=== PATIENT | female | born 1955 | race Caucasian/White ===

== ENCOUNTER 2017-03-21 10:06 | Outpatient (CLI) | payer OTHER ==
--- NOTE | 2017-03-21 11:35 | BD ---
DEXA BONE DENSITY EXAM: History: 61-year-old post-menopausal female for screening. Lumbar Spine: BMD (g/cm2) L1 1.086 T-Score: 0.2 L2 1.018 T-Score: -0.1 L3 1.064 T-Score: -0.2 L4 1.013 T-Score: -0.4 L1-L4 1.044 T-Score: 0.0 Femoral Neck: 0.702 T-Score: -1.3 Total Femur: 0.837 T-Score: -0.9 Impression: Osteopenia. This patient's 10-year fracture risk for major osteophytic fracture is 8.1% at the hip, approximately 0.6%. POS: MANDY
== END 2017-03-21 10:07 | disposition home or self-care (01) ==
LOC: MAMMO 10:06
PROVIDERS: ATTEND Obstetrics & Gynecology Gynecology
DX: Z13.820 Encounter for screening for osteoporosis (principal); M85.80 Other specified disorders of bone density and structure, unspecified site
CPT/HCPCS: 77080

== ENCOUNTER 2021-12-19 10:24 | Outpatient (CLI) | payer OTHER | END 2021-12-19 10:25 | disposition home or self-care (01) | LOC: BICMAMMO 10:24 | PROVIDERS: ATTEND Nurse Practitioner Family | DX: Z13.820 Encounter for screening for osteoporosis (principal); M85.852 Other specified disorders of bone density and structure, left thigh; M85.851 Other specified disorders of bone density and structure, right thigh | CPT/HCPCS: 77063; 77067; 77080 ==

== ENCOUNTER 2022-03-07 13:37 | Outpatient (CLI) | payer OTHER | END 2022-03-07 13:38 | disposition home or self-care (01) | LOC: BICMAMMO 13:37 | PROVIDERS: ATTEND Nurse Practitioner Family | DX: R92.8 Other abnormal and inconclusive findings on diagnostic imaging of breast (principal) | CPT/HCPCS: G0279 ==